=== PATIENT | male | born 1965 | race Caucasian/White ===

== ENCOUNTER 2021-04-08 11:27 | Inpatient (IN) | payer OTHER ==
[2021-04-08] MEDS ORDERED: ASPIRIN 81 MG PO STA (12:26)
[2021-04-08] MEDS ORDERED: DOPamine DRIP 800 MG in DEXTROSE/WATER 1 250ML.BAG IV ONE (12:30)
[2021-04-08] MEDS ORDERED: MAGNESIUM SULFATE-D5W PMX 1 GM in DEXTROSE/WATER 1 100ML.BAG IVPB ONE (12:35)
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
[2021-04-08 12:52] LABS: Basophils # (A) 0.1 k/uL (0-0.2); Basophils % (A) 1 %; Eosinophils # (A) 0.1 k/uL (0-0.7); Eosinophils % (A) 1 %; HCT 43.8 % (39.0-53.0); HGB 13.8 gm/dL (13.0-17.5); Hypochromasia Moderate; Lymphocytes # (A) 1.8 k/uL (1.0-4.8); Lymphocytes % (A) 20 %; MCH 28.3 pg (25.0-35.0); MCHC 31.4 g/dL (31.0-37.0); MCV 90.2 fL (80.0-100.0); Mean Platelet Volume 8.6; Monocytes # (A) 0.6 k/uL (0-1.0); Monocytes % (A) 7 %; Neutrophils # (A) 6.5 k/uL (1.3-7.7); Neutrophils % (A) 70 %; Platelet Count 215 k/uL (150-450); RBC 4.86 m/uL (4.30-5.90); RDW 15.2 % (11.5-15.5); WBC 9.3 k/uL (3.8-10.6)
[2021-04-08 13:01] LABS: Albumin 3.9 g/dL (3.5-5.0); Calcium 9.1 mg/dL (8.4-10.2); Magnesium 1.7 mg/dL (1.6-2.3); Potassium 5.2 mmol/L (3.5-5.1); Total Bilirubin 1.4 mg/dL (0.2-1.3); Total Protein 7.3 g/dL (6.3-8.2)
[2021-04-08] MEDS ORDERED: OLANZapine 10 MG VIAL IM STA (13:04)
[2021-04-08 13:06] LABS: INR 1.1 (<1.2); Partial Thromboplastin Time 25.1 sec (22.0-30.0); Prothrombin Time 11.7 sec (9.0-12.0)
[2021-04-08] MEDS ORDERED: SODIUM CHLORIDE 0.9% 1,000 ML IV STA (13:08)
[2021-04-08] MEDS ORDERED: NALOXONE 0.4 MG/ML 1 ML VIAL IV PRN (13:27)
--- NOTE | 2021-04-08 13:29 | XR ---
EXAMINATION TYPE: XR chest 1V portable DATE OF EXAM: 04/08/2021 COMPARISON: NONE HISTORY: Chest pain. Bradycardia and hypertension. TECHNIQUE: Single AP portable frontal upright view of the chest is obtained. FINDINGS: Overlying sternal wires and mediastinal clips are present. There is mild cardiomegaly with single lead defibrillator may be subcutaneous or epicardial in position. Mild reticular interstitial prominence favors chronic parenchymal fibrosis. No suspicious focal consolidation, pleural effusion, or pneumothorax. Fusion plate in the cervical spine is partially imaged. IMPRESSION: Mild cardiomegaly and chronic changes without acute pulmonary process.
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
[2021-04-08] MEDS ORDERED: fentaNYL (PF) 50 MCG/ML 2 ML AMP ONE (13:52)
[2021-04-08] MEDS ORDERED: LIDOCAINE 1% INJ 10MG/ML (20 ML MDV) ONE (13:52)
[2021-04-08] MEDS ORDERED: SODIUM CHLORIDE 0.9% 1,000 ML IV ONE (14:00)
[2021-04-08] MEDS ORDERED: MIDAZOLAM 2 MG/2 ML VIAL IV ONE (14:04)
[2021-04-08] MEDS ORDERED: LIDOCAINE 1% INJ 10MG/ML (20 ML MDV) SQ ONE (14:09)
[2021-04-08 15:20] LABS: Glucose,Whole Blood 301 mg/dL (75-99)
[2021-04-08] MEDS: SODIUM CHLORIDE 0.9% 1,000 ML IV SCH (16:00)
[2021-04-08] MEDS ORDERED: HEPARIN SODIUM 1,000 UN/ML (10ML VL) IV PRN (16:06)
[2021-04-08] MEDS: HEPARIN SOD,PORK IN 0.45% NACL 25,000 UNIT in 0.45% NACL 1 250ML.BAG IV SCH (16:47)
[2021-04-08 16:59] LABS: Glucose,Whole Blood 318 mg/dL (75-99)
--- NOTE | 2021-04-08 17:41 | CONS ---
CONSULTATION This is a 55-year-old gentleman who presented to hospital having had episodes of dizziness and near syncope. He was found to be in complete heart block with AV dissociation with a stable rhythm with a heart rate of 40 beats per minute. There were also ischemic T wave changes on the EKG. His potassium is elevated at 5.2. He is in new onset renal failure and the troponin is also elevated suggestive of recent myocardial infarction. The patient has a subcutaneous ICD and does not have a pacing function. I attempted a temporary transvenous pacemaker on him, but could not obtain venous access and given the fact that patient is stable hemodynamically blood pressure de jesus and heart rate de jesus on a small dose of dopamine, I decided not to do a temporary pacemaker at this time. I am going to have Nephrology evaluate the patient, hydrate him and see how his renal functions improve. With that, we would consider invasive angiography and a Bi-V AICD. The patient might actually undergo the Bi-V AICD before the cardiac catheterization if the sinus rhythm does not resume. If he develops worsening bradycardia, more symptomatic bradycardia, we will have to go back and attempt a temporary pacemaker another time. I am not performing cardiac catheterization on him at this time given the new onset renal failure and my concern for contrast induced nephropathy and the fear for dialysis. He is not having any chest pain. He is not in overt heart failure and he is hemodynamically stable. TINYL / IJN: [id number] /
[2021-04-08] MEDS: INSULIN ASPART (NovoLOG) 100 UNIT/ML VIAL SQ SCH ×2 (17:54)
[2021-04-08] MEDS ORDERED: FUROSEMIDE 10 MG/ML 4 ML VIAL IV STA (19:47)
[2021-04-08 20:04] LABS: INR 1.1 (<1.2); Partial Thromboplastin Time 29.1 sec (22.0-30.0); Prothrombin Time 11.7 sec (9.0-12.0)
[2021-04-08] MEDS: GABAPENTIN 300 MG CAP PO SCH (20:28)
[2021-04-08] MEDS: ATORVASTATIN 80 MG TAB PO SCH (20:29)
[2021-04-08 20:46] LABS: Glucose,Whole Blood 300 mg/dL (75-99)
[2021-04-08] MEDS ORDERED: CLOPIDOGREL 75 MG TAB PO SCH (21:00)
[2021-04-08] MEDS ORDERED: INSULIN DETEMIR (LEVEMIR) 100 UNIT/ML SYR SQ SCH (21:00)
[2021-04-09] MEDS: SODIUM CHLORIDE 0.9% 1,000 ML IV SCH ×6 (03:25→20:50)
[2021-04-09 04:14] LABS: INR 1.1 (<1.2); Partial Thromboplastin Time 40.2 sec (22.0-30.0); Prothrombin Time 11.8 sec (9.0-12.0)
[2021-04-09 05:42] LABS: Glucose,Whole Blood 203 mg/dL (75-99)
[2021-04-09] MEDS: INSULIN ASPART (NovoLOG) 100 UNIT/ML VIAL SQ SCH ×6 (05:44→20:26)
[2021-04-09 06:29] LABS: Basophils % (A) 0 %; Eosinophils # (A) 0.1 k/uL (0-0.7); Eosinophils % (A) 1 %; HCT 40.1 % (39.0-53.0); HGB 12.5 gm/dL (13.0-17.5); Hypochromasia Moderate; Lymphocytes # (A) 1.6 k/uL (1.0-4.8); Lymphocytes % (A) 16 %; MCH 28.1 pg (25.0-35.0); MCHC 31.1 g/dL (31.0-37.0); MCV 90.2 fL (80.0-100.0); Mean Platelet Volume 8.6; Monocytes # (A) 0.6 k/uL (0-1.0); Monocytes % (A) 6 %; Neutrophils # (A) 8.1 k/uL (1.3-7.7); Neutrophils % (A) 77 %; Platelet Count 162 k/uL (150-450); RBC 4.44 m/uL (4.30-5.90); WBC 10.5 k/uL (3.8-10.6)
[2021-04-09 07:19] LABS: Calcium 8.4 mg/dL (8.4-10.2); Magnesium 1.9 mg/dL (1.6-2.3); Potassium 4.5 mmol/L (3.5-5.1); Total Bilirubin 1.6 mg/dL (0.2-1.3); Total Protein 6.2 g/dL (6.3-8.2)
[2021-04-09] MEDS: ASPIRIN 81 MG PO SCH (08:06)
[2021-04-09] MEDS: GABAPENTIN 300 MG CAP PO SCH ×3 (08:06→20:31)
[2021-04-09] MEDS: oxyCODONE-APAP 10-325MG 1 EACH TAB PO PRN ×2 (08:09→22:35)
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
--- NOTE | 2021-04-09 10:18 | P.PN ---
Subjective Progress Note Date: 04/09/21 Patient is a 55-year-old male with a known history of hypertension, coronary artery disease status post coronary artery bypass grafts for 4 vessels in 2016, ischemic cardiomyopathy status post subcutaneous AICD no pacemaker, hyperlipidemia, severe peripheral artery disease, status post left below the knee amputation, history of CVA with left-sided weakness that has no residual, degenerative disc disease of the cervical spine status post ACDF of C5 and C7, diabetes mellitus type 2 and new onset renal failure. Patient had a near syncopal episode at home. Patient was admitted with a third degree heart block. Patient sees Dr. Jalloh in the office. Patient remains in a a complete heart block with A-V disassociation with a stable rhythm with a heart rate in the 40s. Spoke with Dr. Jalloh, patient will go for an AICD today followed by a possible cardiac catheterization tomorrow based on patient's creatinine. Will check electrolytes in the morning. Keep patient nothing by mouth at midnight. Patient examined resting in bed this morning. Patient denies chest pain, palpitations, dyspnea, dizziness, syncope, or edema. Blood pressure today is 116/53, heart rate 48, respirations 17, oxygen 96% on 4 L nasal cannula, afebrile. Patient is on IV heparin. Diagnostics: Telemetry monitoring shows patient in the third degree heart block Labs reviewed: Hemoglobin 12.5, sodium 130, potassium 4.5, BUN 32, creatinine 1.51, hemoglobin 10.2, troponins 1.78, 2.11, 3.30 Echo pending Chest x-ray showed mild cardiomegaly and chronic changes without acute pulmonary process Objective - Vital Signs Vital signs: Vital Signs Temp 98.4 F 04/09/21 04:00 Pulse 48 L 04/09/21 08:00 Resp 17 04/09/21 08:00 BP 116/53 04/09/21 08:00 Pulse Ox 96 04/09/21 08:00 Intake & Output 04/08/21 04/09/21 04/09/21 18:59 06:59 18:59 Intake Total 352.273 9170.146 200 Output Total 1000 0 Balance 353.373 276.146 200 Weight 83.915 kg 82 kg Intake: IV 325 900 200 Sodium Chloride 0.9% 1, 225 900 200 000 ml @ 50 mls/hr IV . Q20H [facility] [place] Rx#:[id number] Intake, IV Titration 28.373 136.146 Amount DOPamine DRIP 800 mg In 28.373 Dextrose/Water 1 250ml. bag @ 5 MCG/KG/MIN 7.867 mls/hr IV .Q24H [facility] Rx#: [id number] Heparin Sod,Pork in 0.45% 136.146 NaCl 25,000 unit In 0.45 % NaCl 1 250ml.bag @ 11. 917 UNITS/KG/HR 10 mls/hr IV .Q24H [facility] Rx#: [id number] Oral 240 Output: Urine 1000 0 Other: Voiding Method Urinal - Exam PHYSICAL EXAM: VITAL SIGNS: Reviewed. GENERAL: Well-developed in no acute distress. HEENT: Head is normocephalic. Pupils are equal, round. Sclerae anicteric. Mucous membranes of the mouth are moist. NECK: Supple. No JVD or thyromegaly RESPIRATORY: Respirations even and unlabored. Lungs diminished to auscultation bilaterally. Patient on 4 L nasal cannula CARDIO: Iregular rate and rhythm. Complete heart block with A-V disassociation, No murmur or gallops. EXTREMITIES: Normal range of motion. No clubbing or cyanosis. Peripheral pulses intact. Negative for bilateral lower extremity edema NEURO: Orientated to person, time, mood is appropriate - Labs CBC & Chem 7: 04/09/21 05:32 04/09/21 05:32 Labs: Abnormal Lab Results - Last 24 Hours (Table) 04/08/21 04/08/21 04/08/21 Range/Units 12:38 12:38 15:18 Hgb (13.0-17.5) gm/dL Neutrophils # (1.3-7.7) k/uL APTT (22.0-30.0) sec Sodium 128 L (137-145) mmol/L Potassium 5.2 H (3.5-5.1) mmol/L Chloride 94 L (98-107) mmol/L BUN 33 H (9-20) mg/dL Creatinine 2.23 H (0.66-1.25) mg/dL Glucose 299 H (74-99) mg/dL POC Glucose (mg/dL) 301 H (75-99) mg/dL Hemoglobin A1c (0.0-6.0) % Total Bilirubin 1.4 H (0.2-1.3) mg/dL Alkaline Phosphatase 129 H (38-126) U/L Troponin I 1.780 H* (0.000-0.034) ng/mL Total Protein (6.3-8.2) g/dL Albumin (3.5-5.0) g/dL 04/08/21 04/08/21 04/08/21 Range/Units 16:53 19:28 20:43 Hgb (13.0-17.5) gm/dL Neutrophils # (1.3-7.7) k/uL APTT (22.0-30.0) sec Sodium (137-145) mmol/L Potassium (3.5-5.1) mmol/L Chloride (98-107) mmol/L BUN (9-20) mg/dL Creatinine (0.66-1.25) mg/dL Glucose (74-99) mg/dL POC Glucose (mg/dL) 318 H 300 H (75-99) mg/dL Hemoglobin A1c (0.0-6.0) % Total Bilirubin (0.2-1.3) mg/dL Alkaline Phosphatase (38-126) U/L Troponin I 2.110 H* (0.000-0.034) ng/mL Total Protein (6.3-8.2) g/dL Albumin (3.5-5.0) g/dL 04/09/21 04/09/21 04/09/21 Range/Units 03:17 03:17 05:32 Hgb 12.5 L (13.0-17.5) gm/dL Neutrophils # 8.1 H (1.3-7.7) k/uL APTT 40.2 H (22.0-30.0) sec Sodium (137-145) mmol/L Potassium (3.5-5.1) mmol/L Chloride (98-107) mmol/L BUN (9-20) mg/dL Creatinine (0.66-1.25) mg/dL Glucose (74-99) mg/dL POC Glucose (mg/dL) (75-99) mg/dL Hemoglobin A1c (0.0-6.0) % Total Bilirubin (0.2-1.3) mg/dL Alkaline Phosphatase (38-126) U/L Troponin I 3.300 H* (0.000-0.034) ng/mL Total Protein (6.3-8.2) g/dL Albumin (3.5-5.0) g/dL 04/09/21 04/09/21 04/09/21 Range/Units 05:32 05:32 05:41 Hgb (13.0-17.5) gm/dL Neutrophils # (1.3-7.7) k/uL APTT (22.0-30.0) sec Sodium 130 L (137-145) mmol/L Potassium (3.5-5.1) mmol/L Chloride (98-107) mmol/L BUN 32 H (9-20) mg/dL Creatinine 1.51 H (0.66-1.25) mg/dL Glucose 236 H (74-99) mg/dL POC Glucose (mg/dL) 203 H (75-99) mg/dL Hemoglobin A1c 10.2 H (0.0-6.0) % Total Bilirubin 1.6 H (0.2-1.3) mg/dL Alkaline Phosphatase (38-126) U/L Troponin I (0.000-0.034) ng/mL Total Protein 6.2 L (6.3-8.2) g/dL Albumin 3.0 L (3.5-5.0) g/dL Assessment and Plan Assessment: Complete heart block Non-ST elevated myocardial infarction Acute kidney injury Ischemic cardiomyopathy Hypertension Hyperlipidemia Plan: he will have an AICD placed today. Possible heart catheterization tomorrow based on patient's creatinine levels. Keep patient nothing by mouth at midnight. Check electrolytes and kidney function tomorrow Continue with current cardiac medications Review pending echocardiogram Continue telemetry monitoring Further recommendations based on clinical course The above impression and plan of care have been discussed and directed by the signing physician. Mary Kay, nurse practitioner, acting as scribe for signing physician.
--- NOTE | 2021-04-09 10:54 | ECHOF ---
Referral Reason:heart block MEASUREMENTS -------- HEIGHT: 172.7 cm WEIGHT: 83.9 kg BP: 113/58 IVSd: 1.4 cm (0.6 - 1.1) LVIDd: 4.7 cm (3.9 - 5.3) LVPWd: 1.5 cm (0.6 - 1.1) IVSs: 1.6 cm LVIDs: 3.9 cm LVPWs: 1.5 cm FINDINGS -------- Resting bradycardia (HR<60bpm). This was a technically difficult study with suboptimal apical views. The left ventricular size is normal. There is mild concentric left ventricular hypertrophy. Overa ll left ventricular systolic function is moderate-severely impaired with, an EF between 30 - 35 %. Septal wall motion is delayed and consistent with prior cardiac surgery. Global hypokinesis 3.0mg of Lumason was utilized for enhancement of images There is no pericardial effusion. CONCLUSIONS -------- 1. The left ventricular size is normal. 2. There is mild concentric left ventricular hypertrophy. 3. Overall left ventricular systolic function is moderate-severely impaired with, an EF between 30 - 35 %. 4. Global hypokinesis CORRECTIONS UNIT SUPERVISOR: Vernell Zhang RDCS
[2021-04-09] MEDS: FUROSEMIDE 10 MG/ML 4 ML VIAL IV SCH (10:55)
[2021-04-09 11:53] LABS: Glucose,Whole Blood 60 mg/dL (75-99)
[2021-04-09 11:53] LABS: Glucose,Whole Blood 62 mg/dL (75-99)
[2021-04-09] MEDS ORDERED: DEXTROSE 50% SYRINGE 50 ML IVP ONE (11:55)
[2021-04-09] MEDS ORDERED: DEXTROSE 50% SYRINGE 50 ML IVP STA (11:56)
[2021-04-09] MEDS ORDERED: ceFAZolin 1 GM in SODIUM CHLORIDE 0.9% 250 ML IRRIGATION PRN (12:00)
[2021-04-09 12:24] LABS: Glucose,Whole Blood 104 mg/dL (75-99)
[2021-04-09 13:13] LABS: Appearance,Urine Clear (Clear); Bilirubin,Urine Negative (Negative); Blood,Urine Small (Negative); Color,Urine Yellow; Glucose,Urine (UA) Negative (Negative); Ketones,Urine Negative (Negative); Leukocyte Esterase,Urine Trace (Negative); Nitrite,Urine Negative (Negative); PH, Urine 5.5 (5.0-8.0); Protein,Urine 2+ (Negative); RBC,Urine 2 /hpf (0-5); Squamous Epithelial Cell,Urine 1 /hpf (0-4); Urobilinogen,Urine <2.0 mg/dL (<2.0); WBC,Urine 4 /hpf (0-5)
[2021-04-09 13:59] LABS: Glucose,Whole Blood 72 mg/dL (75-99)
[2021-04-09 14:35] VITALS: BMI 27.4
[2021-04-09] MEDS ORDERED: fentaNYL (PF) 50 MCG/ML 2 ML AMP ONE (16:20)
[2021-04-09] MEDS ORDERED: MIDAZOLAM 2 MG/2 ML VIAL ONE (16:20)
[2021-04-09] MEDS ORDERED: IV FLUID CONTINUATION 1,000 ML IV ONE (16:25)
--- NOTE | 2021-04-09 16:38 | P.EPCON ---
Electrophysiology Consult - EP Consult Electrophysiology Consult: This is Dr. Sorenson dictating a consult on this patient The patient was interviewed and examined IMPRESSION / ASSESSMENT: Third degree heart block with underlying right bundle branch block Ischemic cardio myopathy, left ventricular ejection fraction 30 of 35% Status post subcutaneous ICD implant Status post coronary artery bypass grafting Hypertension, type 2 diabetes, peripheral vascular disease Prerenal nature of acute renal failure I anticipate that Will improve with pacing PLAN: Patient needs permanent pacing. However the standard pacemaker. Pace his ventricle 100% With underlying ischemic cardio myopathy that result in worsening heart failure symptoms Would recommend implantation of a biventricular pacemaker in combination with a subcutaneous ICD This was discussed with patient He agrees with the plan We will proceed tomorrow Avoid transvenous temporary pacing and discussed with Dr. Kay KERN Patient presenting with dizzy spells and near syncope over the weekend He felt everything was slowing down going black. He had 3 near syncopal spells while sitting no injury Twelve-lead EKG in his primary care physician's office showed complete heart block with heart rates in the 40s On IV dopamine his heart rate still remain 40 beats a minute He has known ischemic coronary myopathy with left ventricular ejection fraction of 25% enzyme carvedilol for this This medications discontinued and he remains slow History of hypertension, coronary artery disease status post coronary artery bypass grafting, PCI to the LAD and RCA Ischemic cardio myopathy Status post subcutaneous ICD implant about 4 years back in [place] Type 2 diabetes, status post amputation, peripheral vascular disease ROS: No fever chills or rigors, no cough, phlegm or expectoration, no nausea, vomiting or diarrhea, no hematuria, dysuria, no musculoskeletal complaints, no strokes or seizures, no skin lesions. EXAMINATION: 1 examination he is resting comfortably in the ICU bed heart rates in the 40s afebrile Blood pressure 146/62 mmHg Breath sounds are reduced bilaterally but there are no rhonchi no crackles Heart sounds S1 and S2 are soft no murmurs bradycardia noted No lower extremity edema No JVD REVIEW OF LABS, ECG & MEDICAL DATA 12.5 hemoglobin, platelet count 106 2000 Sodium 130, potassium 4.5, BUN 32 and creatinine 2.23 Troponin of 2.1
[2021-04-09] MEDS ORDERED: IOPAMIDOL-370 50ML BTL INJ ONE ×2 (16:52→18:29)
[2021-04-09] MEDS ORDERED: LIDOCAINE 1% INJ 10MG/ML (20 ML MDV) ONE ×2 (16:56→17:24)
[2021-04-09] MEDS ORDERED: LIDOCAINE 1% INJ 10MG/ML (20 ML MDV) SQ ONE ×2 (17:15→17:27)
[2021-04-09] MEDS ORDERED: LACTATED RINGERS 1,000 ML IV ONE (18:06)
[2021-04-09] MEDS ORDERED: ACETAMINOPHEN IV (For NPO) 1,000 MG in EMPTY BAG 1 BAG IVPB ONE (19:05)
[2021-04-09] MEDS ORDERED: ACETAMINOPHEN TAB 325 MG TAB PO PRN (19:05)
--- NOTE | 2021-04-09 19:21 | P.EPPROC ---
- EP Procedure Note Electrophysiology Procedure Note: Diagnosis Third degree heart block with severe bradycardia Bradycardia, standard pacemaker will result in RV pacing = 100% Severe congestive heart failure Severe ischemic cardio myopathy Procedure LV/ biventricular pacemaker implantation Details Patient was brought to the EP lab in a fasting state. Written informed consent was obtained prior to the procedure. Conscious sedation provided by anesthesia team IV antibiotics administered. Local anesthesia administered. A 4 cm incision made in the pectoral area. Subfascial pocket made. Venous access obtained Venous sheaths placed. Leads placed in the right heart Atrial lead position the right atrial appendage. Metronic 52 segmented lead screwed in right atrial appendage. He waves 2.5 mV pacing impedance 513 ohms pacing threshold 0.5 V at 0.4 ms 10 V test negative RV lead position in the RV septum. ICD lead placed because he had a very dilated right ventricle with high pressures, needing a heavier, longer lead Pacing impedance 570 ohms, pacing threshold 0.5 V at 0.4 ms LV lead positioned in the LV vein, lateral vein Screw-in LV lead 88 cm. Excellent thresholds 0.5 V at 0.4 ms between poles 1 and 2 and post 2 and 3 as well as poles 3 and 4 Diaphragmatic stimulation when pacing poles 4-3 DF 1 pin capped and secured to the muscle Biventricular pacemaker device connected to the leads and placed in the subfascial pocket Metronic Solara quad MRI Patient tolerance the procedure well without acute complications Plan Resume beta blockers Initiate ENTRESTO once renal function is at baseline
[2021-04-09 19:58] LABS: Glucose,Whole Blood 59 mg/dL (75-99)
[2021-04-09 20:15] LABS: Glucose,Whole Blood 84 mg/dL (75-99)
[2021-04-09] MEDS: HEPARIN SOD,PORK IN 0.45% NACL 25,000 UNIT in 0.45% NACL 1 250ML.BAG IV SCH (20:26)
[2021-04-09] MEDS: ATORVASTATIN 80 MG TAB PO SCH (20:31)
[2021-04-09] MEDS ORDERED: INSULIN DETEMIR (LEVEMIR) 100 UNIT/ML SYR SQ SCH (21:00)
--- NOTE | 2021-04-09 21:32 | XR ---
EXAMINATION TYPE: XR chest 1V portable DATE OF EXAM: 04/09/2021 COMPARISON: NONE HISTORY: Chest pain TECHNIQUE: Single view FINDINGS: Heart is normal. Lungs are clear of consolidation. There is left axillary pacemaker. There are sternal wires. The costophrenic angles are clear. IMPRESSION: No active cardiopulmonary disease. No adverse change.
[2021-04-10] LABS: Glucose,Whole Blood 203 mg/dL (75-99)
[2021-04-10 06:10] LABS: Glucose,Whole Blood 207 mg/dL (75-99)
[2021-04-10] MEDS: INSULIN ASPART (NovoLOG) 100 UNIT/ML VIAL SQ SCH ×4 (06:27→12:03)
[2021-04-10] MEDS ORDERED: PANTOPRAZOLE 40 MG TABLET PO SCH (07:30)
[2021-04-10] MEDS ORDERED: carvediloL 3.125 MG TAB PO SCH (07:30)
[2021-04-10] MEDS: FUROSEMIDE 10 MG/ML 4 ML VIAL IV SCH (08:07)
[2021-04-10] MEDS: ASPIRIN 81 MG PO SCH (08:08)
[2021-04-10] MEDS: oxyCODONE-APAP 10-325MG 1 EACH TAB PO PRN (08:08)
[2021-04-10] MEDS: GABAPENTIN 300 MG CAP PO SCH (08:08)
[2021-04-10 08:13] VITALS: RESP 16; TEMP 98.2
--- NOTE | 2021-04-10 08:30 | P.DS ---
Providers Date of admission: 04/08/21 13:29 Expected date of discharge: 04/10/21 Attending physician: Fredy Sheehan Consults: 04/08/21 12:33 Consult Physician Stat Consulting Provider: Rosendo Cid Consult Reason/Comments: complete heart block Do you want consulting provider notified?: Already Contacted 04/08/21 14:51 Consult Physician Routine Consulting Provider: Vishnu Matos Consult Reason/Comments: New Onset Kidney Disease Do you want consulting provider notified?: Yes Primary care physician: Fredy Sheehan Hospital Course: This is a 55-year-old male one of my patient and Dr. Jalloh with a previous medical history significant for hypertension and hypertensive cardiovascular disease, diabetes mellitus type 2, for the last 3 years with diabetic polyneuropathy, coronary artery disease status post coronary artery bypass graft for 4 vessels back in 2016 with MONTALVO to LAD, jump SVG graft to the diagonal branch and obtuse marginal branch and SVG graft to the RCA with ischemic cardiomyopathy status post subcutaneous AICDno pacemaker, hyperlipidemia, severe PAD, status post left below-knee amputation, history of CVA with left- sided weakness that has resolved completely, degenerative disc disease of the cervical spine status post ACDF of C5 and C7. Patient presented to the office complains of syncopal episodes, feeling tired. He had stopped taking his Coreg and Plavix at home. Patient had a total of 3 syncopal episodes. In the office his EKG showed complete heart block with heart rate in the 40s and patient was sent over directly to the emergency center. Patient was subsequently admitted into the intensive care unit status post transvenous pacemaker placement with Dr. Nay Cid and scheduled for biventricular AICD implantation today. Patient states he feels tired. He denies having any dizziness or lightheadedness, no chest pain or pressure. Blood sugars are on the high side so Levemir will be increased to 27 units. 04/10: Patient is seen today on the cardiac stepdown unit. He is complaining of significant soreness to his left shoulder and arm sling is in place. Patient is requesting sensors for his Freestyle Chapito 2 but due to his insurance, no coverage is available. Patient is to have device interrogated and then cleared by cardiology for discharge. Cardiology is planning for heart catheterization outpatient. Patient will be discharged home today in stable condition. DISCHARGE DIAGNOSES 1. Complete heart block, status post transvenous pacemaker placement with Dr. Nay Cid and S/P biventricular AICD implantation with Dr. Sorenson. 2. Acute kidney injury. 3. Ischemic cardiomyopathy. 4. Diabetes mellitus type 2 insulin requiring, uncontrolled with hyperglycemia. 5. Severe PAD status post left below-knee amputation with current disease in the right lower extremity has been under the care of vascular surgery. 6. Diabetic polyneuropathy. 7. Chronic pain syndrome secondary to degenerative disc disease of the cervical spine and lumbar spine. 8. Insomnia. DISCHARGE PLAN Home. Greater than 35 minutes was utilized and coordinating patient's discharge. Impression and plan of care have been directed as dictated by the signing physician. Jen Jolley nurse practitioner acting as scribe for signing physician. Patient Condition at Discharge: Good Plan - Discharge Summary New Discharge Prescriptions: New Aspirin 81 mg PO DAILY tab carvediloL [Coreg] 3.125 mg PO BID-W/MEALS #60 tab Continue metFORMIN HCL [Glucophage] 1,000 mg PO W/SUPPER Clopidogrel [Plavix] 75 mg PO HS oxyCODONE HCL/ACETAMINOPHEN [Percocet 10-325 mg] 1 tab PO Q6HR PRN PRN Reason: Pain Insulin Glargine,Hum.rec.anlog [Lantus Solostar Pen] 24 unit SQ HS Gabapentin [Neurontin] 600 mg PO TID #0 Insulin Lispro [humaLOG Kwikpen] 4 unit SQ AC-TID Atorvastatin Calcium [Lipitor] 80 mg PO HS #30 tablet Furosemide [Lasix] 80 mg PO HS Nitroglycerin Sl Tabs [Nitrostat] 0.4 mg PO Q5M PRN PRN Reason: Chest Pain Insulin Lispro [humaLOG Kwikpen] See Protocol SQ AC-TID Discontinued carvediloL [Coreg] 6.25 mg PO HS Discharge Medication List Clopidogrel [Plavix] 75 mg PO HS 05/31/20 [History] metFORMIN HCL [Glucophage] 1,000 mg PO W/SUPPER 05/31/20 [History] Insulin Glargine,Hum.rec.anlog [Lantus Solostar Pen] 24 unit SQ HS 12/08/20 [History] oxyCODONE HCL/ACETAMINOPHEN [Percocet 10-325 mg] 1 tab PO Q6HR PRN 12/08/20 [History] Atorvastatin Calcium [Lipitor] 80 mg PO HS #30 tablet 12/12/20 [Rx] Gabapentin [Neurontin] 600 mg PO TID #0 12/12/20 [Rx] Furosemide [Lasix] 80 mg PO HS 01/07/21 [History] Nitroglycerin Sl Tabs [Nitrostat] 0.4 mg PO Q5M PRN 01/07/21 [History] Insulin Lispro [humaLOG Kwikpen] 4 unit SQ AC-TID 04/08/21 [History] Insulin Lispro [humaLOG Kwikpen] See Protocol SQ AC-TID 04/08/21 [History] Aspirin 81 mg PO DAILY tab 04/10/21 [Rx] carvediloL [Coreg] 3.125 mg PO BID-W/MEALS #60 tab 04/10/21 [Rx] Follow up Appointment(s)/Referral(s): Fredy Sheehan MD [Primary Care Provider] - 1 Week Rosendo Cid MD [STAFF PHYSICIAN] - 1 Week Patient Instructions/Handouts: Pacemaker (DC) Activity/Diet/Wound Care/Special Instructions: Order for sensors faxed to [facility] - phone number [phone] Discharge Disposition: HOME SELF-CARE
[2021-04-10 08:42] LABS: Albumin 3.1 g/dL (3.5-5.0); Calcium 8.3 mg/dL (8.4-10.2); Magnesium 1.8 mg/dL (1.6-2.3); Potassium 4.4 mmol/L (3.5-5.1); Total Bilirubin 1.3 mg/dL (0.2-1.3); Total Protein 6.4 g/dL (6.3-8.2)
[2021-04-10 11:45] LABS: Glucose,Whole Blood 272 mg/dL (75-99)
--- NOTE | 2021-04-10 11:59 | P.PN ---
Subjective Patient is seen in follow for acute kidney injury. Renal function continues to improve. Had AICD placed yesterday. Denies chest pain or shortness of breath. Good urine output. No vomiting or diarrhea. Hemodynamically stable. Vital signs are stable. General: The patient appeared well nourished and normally developed. HEENT: Head exam is unremarkable. LUNGS: Breath sounds decreased. HEART: Rate and Rhythm are regular. ABDOMEN: Soft, no distention. EXTREMITITES: No edema. Amputation noted. Objective - Vital Signs Vital signs: Vital Signs Temp 98.2 F 04/10/21 08:00 Pulse 83 04/10/21 08:00 Resp 16 04/10/21 08:00 BP 103/69 04/10/21 08:00 Pulse Ox 96 04/10/21 08:00 Intake & Output 04/09/21 04/10/21 04/10/21 18:59 06:59 18:59 Intake Total 1363.854 100 360 Output Total 450 Balance 913.854 100 360 Weight 82 kg 75 kg Intake: IV 1250 50 Sodium Chloride 0.9% 1, 550 50 000 ml @ 50 mls/hr IV . Q20H [facility] Rx#:[id number] Intake, IV Titration 113.854 50 Amount Heparin Sod,Pork in 0.45% 113.854 NaCl 25,000 unit In 0.45 % NaCl 1 250ml.bag @ 11. 917 UNITS/KG/HR 10 mls/hr IV .Q24H [facility] Rx#: [id number] ceFAZolin 2 gm In Sodium 50 Chloride 0.9% 50 ml @ 100 mls/hr IVPB Q6H [facility] Rx#: [id number] Oral 360 Output: Urine 450 Other: Voiding Method Urinal Toilet Toilet Urinal Urinal # Voids 1 # Bowel Movements 1 - Labs CBC & Chem 7: 04/09/21 05:32 04/10/21 07:25 Labs: Abnormal Lab Results - Last 24 Hours (Table) 04/09/21 04/09/21 04/09/21 Range/Units 12:22 13:00 13:57 Sodium (137-145) mmol/L BUN (9-20) mg/dL Glucose (74-99) mg/dL POC Glucose (mg/dL) 104 H 72 L (75-99) mg/dL Calcium (8.4-10.2) mg/dL Albumin (3.5-5.0) g/dL Urine Protein 2+ H (Negative) Urine Blood Small H (Negative) Ur Leukocyte Esterase Trace H (Negative) 04/09/21 04/09/21 04/10/21 Range/Units 19:56 23:58 06:08 Sodium (137-145) mmol/L BUN (9-20) mg/dL Glucose (74-99) mg/dL POC Glucose (mg/dL) 59 L 203 H 207 H (75-99) mg/dL Calcium (8.4-10.2) mg/dL Albumin (3.5-5.0) g/dL Urine Protein (Negative) Urine Blood (Negative) Ur Leukocyte Esterase (Negative) 04/10/21 04/10/21 Range/Units 07:25 11:30 Sodium 133 L (137-145) mmol/L BUN 31 H (9-20) mg/dL Glucose 180 H (74-99) mg/dL POC Glucose (mg/dL) 272 H (75-99) mg/dL Calcium 8.3 L (8.4-10.2) mg/dL Albumin 3.1 L (3.5-5.0) g/dL Urine Protein (Negative) Urine Blood (Negative) Ur Leukocyte Esterase (Negative) Assessment and Plan Plan: Assessment: 1. Acute kidney injury mostly prerenal secondary to hemodynamic instability. Creatinine was 2.23 on admission and is 1.21 today. Baseline creatinine near 1. 2. Third-degree heart block s/p biventricular pacemaker placement. 3. Diabetes mellitus. 4. Status post left BKA. 5. Hyponatremia secondary to hyperglycemia and acute kidney injury. Improved. 6. Proteinuria. This is most likely due to diabetic kidney disease. Further workup outpatient. 7. Acute on chronic systolic CHF with ejection fraction of 30-35%. Plan: Avoid nephrotoxins. Continue to monitor renal function and urine output. Blood sugar control. Maintain Lasix. Transition to oral on discharge. Follow-up outpatient in 1 week. I advised patient to maintain low salt diet as well as 40 of fluid restriction per day. He was also advised to monitor his weight closely at home and to call if gains more than 3-4 pounds in one week duration.
[2021-04-10 12:07] VITALS: BP 122/69; PULSE 81
--- NOTE | 2021-04-10 13:16 | P.PN ---
Subjective This is a pleasant 55-year-old male with a history of hypertension, coronary artery disease status post CABG in 2016 with 4 bypass and PCI to RCA in 11/2020 and PCI LAD 12/2020, ischemic cardiomyopathy status post subcutaneous AICD No pacer built in, hyperlipidemia, PVD with recent peripheral stenting, diabetes with polyneuropathy, status post amputation. Patient follows with Dr. Jalloh. We have been consulted for complete heart block. Patient presents emergency department with complaints of syncopal episodes. Patient was found to be in third-degree heart block with underlying right bundle-branch block. He was started on dopamine and patient remains on repeat a minute. He was also found to be in acute kidney injury. Echocardiogram revealed EF of 3035 percent, global hypokinesis and patients troponins elevated to 3.3. Patient underwent biventricular pacemaker implantation by Dr. Sorenson on 04/09/2021. Patient seen and examined at bedside, no acute distress. Vital signs are stable. He is V paced on the monitor HR 80s-90s. Patient is on aspirin 81mg daily, atorvastatin 80mg nightly, carvedilol 3.125mg BID, was given IV Lasix 40mg. Patient is alert and oriented x 3. No complaints of chest pain shortness of breath. He does have some soreness to his left arm. Device was checked by breath with no acute findings, device is functioning normally. GENERAL: Well-appearing, well-nourished and in no acute distress. NECK: Supple without JVD or thyromegaly. LUNGS: Breath sounds clear to auscultation bilaterally. Respiration equal and unlabored. No wheezes, rales or rhonchi. HEART: Regular rate and rhythm without murmurs, rubs or gallops. S1 and S2 heard. Left chest pacemaker site, clean dry intact, small dry blood on dressing EXTREMITIES: Normal range of motion, no edema. No clubbing or cyanosis. Peripheral pulses intact. ASSESSMENT Third degree heart block Status post biventricular pacemaker implantation on 04/09/21 Coronary artery disease status post CABG in 2016 with 4 bypass and PCI to RCA in 11/2020 and PCI LAD 12/2020 Ischemic cardio myopathy status post subcutaneous AICD in [facility] uknown date PAD status post peripheral stenting Nonhealing ulcers, status post amputation Diabetes mellitus, type 2 Hypertension Hyperlipidemia PLAN Recommend cardiac catheterization, however, patient does not want this done at this time. We will readdress cardiac catheterization in the office to be done as an outpatient. Entresto to be initated as an outpatient monitoring renal function From a cardiology perspective, patient can be discharged today on current medical therapy Follow up with Dr. Jalloh outpatient Objective - Vital Signs Vital signs: Vital Signs Temp 98.2 F 04/10/21 08:00 Pulse 81 04/10/21 12:00 Resp 16 04/10/21 12:00 BP 122/69 04/10/21 12:00 Pulse Ox 96 04/10/21 12:00 Intake & Output 04/09/21 04/10/21 04/10/21 18:59 06:59 18:59 Intake Total 1363.854 100 360 Output Total 450 Balance 913.854 100 360 Weight 82 kg 75 kg Intake: IV 1250 50 Sodium Chloride 0.9% 1, 550 50 000 ml @ 50 mls/hr IV . Q20H NATHAN Rx#:[id number] Intake, IV Titration 113.854 50 Amount Heparin Sod,Pork in 0.45% 113.854 NaCl 25,000 unit In 0.45 % NaCl 1 250ml.bag @ 11. 917 UNITS/KG/HR 10 mls/hr IV .Q24H NATHAN Rx#: [id number] ceFAZolin 2 gm In Sodium 50 Chloride 0.9% 50 ml @ 100 mls/hr IVPB Q6H NATHAN Rx#: [id number] Oral 360 Output: Urine 450 Other: Voiding Method Urinal Toilet Toilet Urinal Urinal # Voids 1 # Bowel Movements 1 - Labs CBC & Chem 7: 04/09/21 05:32 04/10/21 07:25 Labs: Abnormal Lab Results - Last 24 Hours (Table) 04/09/21 04/09/21 04/09/21 Range/Units 13:00 13:57 19:56 Sodium (137-145) mmol/L BUN (9-20) mg/dL Glucose (74-99) mg/dL POC Glucose (mg/dL) 72 L 59 L (75-99) mg/dL Calcium (8.4-10.2) mg/dL Albumin (3.5-5.0) g/dL Urine Protein 2+ H (Negative) Urine Blood Small H (Negative) Ur Leukocyte Esterase Trace H (Negative) 04/09/21 04/10/21 04/10/21 Range/Units 23:58 06:08 07:25 Sodium 133 L (137-145) mmol/L BUN 31 H (9-20) mg/dL Glucose 180 H (74-99) mg/dL POC Glucose (mg/dL) 203 H 207 H (75-99) mg/dL Calcium 8.3 L (8.4-10.2) mg/dL Albumin 3.1 L (3.5-5.0) g/dL Urine Protein (Negative) Urine Blood (Negative) Ur Leukocyte Esterase (Negative) 04/10/21 Range/Units 11:30 Sodium (137-145) mmol/L BUN (9-20) mg/dL Glucose (74-99) mg/dL POC Glucose (mg/dL) 272 H (75-99) mg/dL Calcium (8.4-10.2) mg/dL Albumin (3.5-5.0) g/dL Urine Protein (Negative) Urine Blood (Negative) Ur Leukocyte Esterase (Negative)
== END 2021-04-10 14:04 | disposition home or self-care (01) | DRG 242 ==
LOC: EC 11:27 → 3SCARD 13:29 → 2SICU 13:54 → 3SCARD 04-09 16:52
PROVIDERS: ADMIT Internal Medicine; ATTEND Internal Medicine
PROC: 02HK3JZ Insertion of Pacemaker Lead into Right Ventricle, Percutaneous Approach (ICD-10-PCS; 2021-04-09)
PROC: 0JH637Z Insertion of Cardiac Resynchronization Pacemaker Pulse Generator into Chest Subcutaneous Tissue and Fascia, Percutaneous Approach (ICD-10-PCS; principal; 2021-04-09 13:15)
PROC: 02H63JZ Insertion of Pacemaker Lead into Right Atrium, Percutaneous Approach (ICD-10-PCS; 2021-04-09 13:15)
DX: I44.2 Atrioventricular block, complete (principal); I50.23 Acute on chronic systolic (congestive) heart failure; E87.1 Hypo-osmolality and hyponatremia; N17.9 Acute kidney failure, unspecified; E11.42 Type 2 diabetes mellitus with diabetic polyneuropathy; E11.51 Type 2 diabetes mellitus with diabetic peripheral angiopathy without gangrene; E11.649 Type 2 diabetes mellitus with hypoglycemia without coma; E11.65 Type 2 diabetes mellitus with hyperglycemia; E78.5 Hyperlipidemia, unspecified; E86.0 Dehydration; Z20.822 Contact with and (suspected) exposure to COVID-19; E87.5 Hyperkalemia; E87.8 Other disorders of electrolyte and fluid balance, not elsewhere classified; F17.210 Nicotine dependence, cigarettes, uncomplicated; I25.10 Atherosclerotic heart disease of native coronary artery without angina pectoris; G89.4 Chronic pain syndrome; I25.5 Ischemic cardiomyopathy; I45.10 Unspecified right bundle-branch block; M50.30 Other cervical disc degeneration, unspecified cervical region; J44.9 Chronic obstructive pulmonary disease, unspecified; I34.0 Nonrheumatic mitral (valve) insufficiency; Z95.810 Presence of automatic (implantable) cardiac defibrillator; Z95.1 Presence of aortocoronary bypass graft; Z89.512 Acquired absence of left leg below knee; Z86.73 Personal history of transient ischemic attack (TIA), and cerebral infarction without residual deficits; Z79.899 Other long term (current) drug therapy; Z79.84 Long term (current) use of oral hypoglycemic drugs; Z79.82 Long term (current) use of aspirin; Z79.4 Long term (current) use of insulin; Z95.5 Presence of coronary angioplasty implant and graft; I11.0 Hypertensive heart disease with heart failure; G47.00 Insomnia, unspecified; I25.2 Old myocardial infarction
CPT/HCPCS: 33208; 33210; 36415; 71045; 80053; 81001; 83036; 83735; 84132; 84484; 85025; 85610; 85730; 86850; 86900; 86901; 87635; 93005; 93308; 96365; 96372; 99291

== ENCOUNTER 2021-11-12 10:19 | Day surgery (SDC) | payer OTHER ==
[2021-11-11 14:36] VITALS: BMI 29.6
[~2021-11-12 10:19] MED LIST: SODIUM CHLORIDE 0.9% 1,000 ML IV SCH; ceFAZolin 1 GM in SODIUM CHLORIDE 0.9% IRRIG BTL 250 ML IRRIGATION PRN
[2021-11-12] MEDS ORDERED: SODIUM CHLORIDE 0.9% 500 ML 500 ML IV ONE (10:30)
[2021-11-12 10:43] LABS: Glucose,Whole Blood 118 mg/dL (70-110)
[2021-11-12 10:48] VITALS: BP 99/53; PULSE 80; RESP 18; TEMP 98.2
[2021-11-12] MEDS ORDERED: MIDAZOLAM 2 MG/2 ML VIAL ONE (11:52)
[2021-11-12] MEDS ORDERED: FUROSEMIDE 10 MG/ML 2 ML VIAL ONE (11:52)
[2021-11-12] MEDS ORDERED: PROPOFOL 10 MG/ML 20 ML VIAL IV ONE (11:52)
[2021-11-12] MEDS ORDERED: fentaNYL (PF) 50 MCG/ML 2 ML AMP ONE (11:52)
[2021-11-12] MEDS ORDERED: PHENYLEPHRINE-0.9% NACL SYG 1,000 MCG/10 ML SYRINGE ONE (11:52)
[2021-11-12] MEDS ORDERED: LIDOCAINE 1% INJ 10MG/ML (30 ML VIAL-PF) SQ ONE ×3 (12:37→15:06)
[2021-11-12] MEDS ORDERED: VANCOMYCIN 2,000 MG in SODIUM CHLORIDE 0.9% 500 ML 500 ML IVPB STA (13:31)
[2021-11-12] MEDS ORDERED: ceFAZolin 1,000 MG in SODIUM CHLORIDE 0.9% IRRIG BTL 250 ML IRRIGATION STA (14:20)
--- NOTE | 2021-11-12 14:39 | P.EPPROC ---
- EP Procedure Note Electrophysiology Procedure Note: Diagnosis Severe cardio myopathy congestive heart failure Subcutaneous ICD at [facility], awaiting generator change Patient has a Medtronic biventricular pacemaker in situ within ICD lead in the RV Congestive heart failure class III elevated pressures intracardiac 6 months back On guideline directed medical treatment including ENTRESTO and carvedilol Procedure details Patient was brought to the EP lab in a fasting state. Written informed consent was obtained prior to the procedure did consciousness sedation provided by [employer] The left pectoral axillary and infraclavicular axillary areas were prepped and draped per protocol. IV antibiotics administered Baseline cine fluoroscopy of the ICD generator and subcutaneous ICD lead performed An incision was made parallel to the anterior axillary fold just over the generator on its anteriormost edge Subcutaneous ICD Generator was explanted The pocket looked well-healed with a very thin capsule no calcification A new subcutaneous ICD was implanted System impedance was 70 ohms After closing the deep layer the device was tested DFT testing of the subcutaneous ICD Ventricular fibrillation was induced and successfully detected during Bi V pacing DFT at 65 J failed in the primary nectar and in the alternate vector at 65 J each A rescue external shock successfully defibrillated the patient to sinus rhythm We compared the orientation of the new subcutaneous ICD on fluoroscopy with the baseline We change the orientation of the subcutaneous ICD to exactly the previous baseline There was improvement in the noninvasive impedance to 65 ohms However when DFT testing was performed, a tight to conversion was noted to 65 J in the primary configuration This is disease tested at 70 J in the primary configuration but this failed and the rescue shock was delivered The new generator was then explanted. The lead was capped and secured to the u nderlying muscle and the wound was closed in 3 layers and dressed per protocol Antibiotic pouch placed in the pocket IV vancomycin administered Extended procedure duration on account of explantation of the device at [facility], implantation of a new device testing of his device Repositioning of this device in a different orientation reclosure of the pocket and retesting there defibrillation threshold levels. Impression Subcutaneous ICD failed to defibrillated the patient at 65 J in the primary and alternate configuration The subcutaneous ICD failed to defibrillated the patient in the primary configu ration, 70 J in a slightly different orientation On fluoroscopy the device position was excellent and posterior lateral The condition of the pocket and the capsule was excellent This most likely represents progression of cardio myopathy and high DFTs on account of this The new subcutaneous ICD generator was explanted and the wound was closed in 3 layers Preparations were made to implant an internal biventricular ICD Since the patient already has an ICD lead internally, this will involve a biventricular ICD generator change today I discussed this with the patient's and informed her of the plan
--- NOTE | 2021-11-12 16:03 | P.PRLE ---
RE: ElroyJah Dear Fredy Mr. Abbasi has known ischemic cardio myopathy and received a subcutaneous ICD in [place] many years back. Subsequently he developed conduction system disease and I implanted a biventricular pacemaker. At that time I had implanted in ICD lead in sterile standard pacing lead since he is very high pressures in the right ventricle and has known RV cardio myopathy His subcutaneous ICD reached KURT and therefore I recommended a subcutaneous ICD generator change However after implantation of the subcutaneous ICD today I tested his defibrillation level We were unable to defibrillated him successfully with the subcutaneous ICD Therefore the subcutaneous ICD was removed Instead the implanted in internal ICD and removed his permanent ventricular pacemaker The failure of his subcutaneous ICD to successfully defibrillated him likely represents progression of left ventricular disease as well as RV enlargement It is unfortunate that despite 8 months of biventricular pacing, the subcutaneous ICD at 65 J was unable to defibrillate him out of ventricular fibrillation, in the EP lab He is DFT via the internal ICD was also elevated at 30 J, but we have an adequate margin of safety His sodium is 125 and is already on carvedilol and ENTRESTO his blood pressure is 100 mmHg Last year he did have an episode of hyperkalemia but for most part his potassium has been in the normal range I will restart him on Aldactone 12.5 mg by mouth daily but he would benefit from SGLT2 inhibitors I will continue Plavix aspirin atorvastatin carvedilol and ENTRESTO and add 12.5 mg of spironolactone to his current regimen He'll check his BMP in 2-3 weeks His TSH is normal Thank you for entrusting me with the care of the patient Warm regards Sincerely Jesse Sorenson
[2021-11-12] MEDS ORDERED: oxyCODONE-APAP 10-325MG 1 EACH TAB PO PRN (16:10)
--- NOTE | 2021-11-12 16:10 | P.EPPROC ---
- EP Procedure Note Electrophysiology Procedure Note: Final Diagnosis High DFTs with subcutaneous ICD Inability to successfully defibrillated patient with a subcutaneous ICD, 65 J and 70 J Biventricular pacemaker in situ but in the ICD lead Biventricular pacemaker explanted and a biventricular ICD implanted DFT between 20 and 30 J internally Procedure details The left pectoral area was prepped and draped as a protocol. IV vancomycin was administered Incision was made directly over the previous injury incision site and carried down to the level of the generator The leads were freed The subfascial pocket was enlarged and the pocket was revised to accommodate the larger device The by ventricle pacemaker was explanted, Medtronic Biventricular ICD was implanted, DF 1 Patient has a DF1 ICD lead in situ [facility] heart failure Quad MRI, DF 1, Medtronic device Thresholds Chronic atrial thresholds 0.7 V at 0.4 ms pacing impedance 418 ohms, P waves 2 mV RV pacing threshold 0.7 V at 0.4 ms, pacing impedance 400 ohms, complete heart block LV 2-LV 3 thresholds 0.5 V at 0.4 ms, pacing impedance 532 ohms Defibrillation level testing Shock and T wave protocol was used to induce ventricle fibrillation This is adequately and appropriately detected at least sensitivity and successfully internally defibrillated with a 30 J shock A 20 J shock in normal polarity was unsuccessful in defibrillated the patient The device was then programmed accordingly with VT zone at 176 beats a minute, monitor zone at 150 beats a minute and give xarelto 114 beats a minute Appropriate antitachycardia pacing cardioversion defibrillations First cardioversion at 30 J first defibrillation at max output Biventricular pacing programmed simultaneous LV RV Patient tolerated the procedure well without any acute complications
[2021-11-12] MEDS ORDERED: FUROSEMIDE 10 MG/ML 4 ML VIAL IV STA (16:12)
[2021-11-12] MEDS ORDERED: ACETAMINOPHEN IV (For NPO) 1,000 MG in EMPTY BAG 1 BAG IVPB ONE (16:13)
[2021-11-12 17:22] LABS: Glucose,Whole Blood 90 mg/dL (70-110)
[2021-11-12] MEDS ORDERED: carvediloL 3.125 MG TAB PO SCH (17:30)
[2021-11-12] MEDS ORDERED: metFORMIN 500 MG TAB PO SCH (17:30)
[2021-11-12 19:43] LABS: Glucose,Whole Blood 147 mg/dL (70-110)
[2021-11-12] MEDS ORDERED: ATORVASTATIN 80 MG TAB PO SCH (21:00)
[2021-11-12] MEDS ORDERED: INSULIN DETEMIR (LEVEMIR) 100 UNIT/ML SYR SQ SCH (21:00)
[2021-11-12] MEDS ORDERED: CLOPIDOGREL 75 MG TAB PO SCH (21:00)
[2021-11-12] MEDS ORDERED: GABAPENTIN 300 MG CAP PO SCH (22:00)
[2021-11-12] MEDS ORDERED: ACETAMINOPHEN TAB 325 MG TAB PO PRN (22:00)
[2021-11-13] MEDS ORDERED: ASPIRIN 81 MG PO SCH (09:00)
== END 2021-11-12 19:50 | disposition home or self-care (01) ==
LOC: CATHEP 10:19 → 6NMEDSUR 15:54 → CATHEP 19:50
PROVIDERS: ATTEND Internal Medicine Clinical Cardiac Electrophysiology
DX: Z45.02 Encounter for adjustment and management of automatic implantable cardiac defibrillator (principal); I25.5 Ischemic cardiomyopathy; I44.2 Atrioventricular block, complete; I51.7 Cardiomegaly; Z20.822 Contact with and (suspected) exposure to COVID-19; E11.9 Type 2 diabetes mellitus without complications; Z82.49 Family history of ischemic heart disease and other diseases of the circulatory system; Z72.0 Tobacco use; Z79.02 Long term (current) use of antithrombotics/antiplatelets; Z79.82 Long term (current) use of aspirin; Z79.4 Long term (current) use of insulin; Z79.899 Other long term (current) drug therapy
CPT/HCPCS: 33233; 33231; 87635; C1882; C1722; J2250; J3370; J1940; J0690; J2001; J3010; J2370; J2704; 33229; 33241

== ENCOUNTER → 2022-07-21 | Outpatient (CLI) | payer OTHER ==
--- NOTE | 2022-07-21 09:43 | CTL ---
EXAMINATION TYPE: CT Low Dose Lung DATE OF EXAM: 07/21/2022 8:03 AM CLINICAL INDICATION:Male, 56 years old with history of Z87.891 personal hx tobacco use;history of tob acco use. COMPARISON: None. TECHNIQUE: Multiple axial non-contrast scans were obtained from approximately the lung apices through the upper abdomen. Coronal and sagittal reformatted images were obtained. Low dose technique was uti lized. CT DLP: 135.70 mGycm, Automated exposure control for dose reduction was used. CT Contrast: Contrast used: None Oral contrast used: None FINDINGS: ======== Lack of intravenous contrast and low dose technique limits the evaluation of the vascular and soft ti ssue structures. LUNGS: No evidence of pulmonary fibrosis. No evidence of focal consolidation, pneumothorax or pleural effusion. Nodules: RUL: None. RML: None. RLL: None. USHA: None. LLL: Calcified granulomas medially measuring 3 mm series 5 image 38 and an adjacent series 5 imag e 37 nodule 2 mm. AIRWAY: Patent and unremarkable. HEART: Size within normal limits. MEDIASTINUM: No gross evidence of adenopathy. VASCULATURE: No aortic aneurysm. MUSCULOSKELETAL: Moderate disc degeneration changes are present throughout the thoracolumbar spine. a nterior fixation hardware in the lower cervical spine. SOFT TISSUES/LYMPH NODES: Cardiac conduction leads present throughout the anterior chest wall with le ads terminating in the right ventricle, coronary sinus and right atrium. LOWER NECK: No significant findings. UPPER ABDOMEN: No significant findings. IMPRESSION: No clinically significant pulmonary nodules. CT LUNG RAD AND CT CHEST RECOMMENDATION: Lung-Rad 1 Negative: Continue annual screening with LDCT in 12 months. S Modifier (other clinically significant findings): None Recommend smoking cessation (if current smoker), or continuation of smoking cessation (if prior smoke r). Annual screening for lung cancer with low-dose computed tomography is recommended in adults ages 55 to 77 years who have a 30 pack-year smoking history and currently smoke or have quit within the pa st 15 years. Screening should be discontinued once a person has not smoked for 15 years or develops a health problem that substantially limits life expectancy or the ability or willingness to have curat blessing lung surgery. Lung rads 2021 [email or web address]
== END | disposition home or self-care (01) ==
LOC: RADCTMAIN 06:58
PROVIDERS: ATTEND Internal Medicine
DX: Z12.2 Encounter for screening for malignant neoplasm of respiratory organs (principal); Z87.891 Personal history of nicotine dependence
CPT/HCPCS: 71271

== ENCOUNTER 2022-08-27 11:44 | Day surgery (SDC) | payer OTHER ==
[2022-07-16 09:35] VITALS: BMI 32.6
[~2022-08-27 11:44] MED LIST changes: +ALPRAZolam 0.25 MG TAB PO PRN; +ALPRAZolam 0.5 MG TAB PO PRN; +ASPIRIN 325 MG TAB PO PRN; +HEPARIN SODIUM,PORCINE 10,000 UNIT in SODIUM CHLORIDE 0.9% 1,000 ML IRRIGATION PRN; +HEPARIN SODIUM,PORCINE 2,500 UNIT in SODIUM CHLORIDE 0.9% 250 ML IRRIGATION PRN; -SODIUM CHLORIDE 0.9% 1,000 ML IV SCH; +SODIUM CHLORIDE 0.9% 1,000 ML in EMPTY BAG 1 BAG IV ONE; +ZOLPIDEM 5 MG TAB PO PRN; -ceFAZolin 1 GM in SODIUM CHLORIDE 0.9% IRRIG BTL 250 ML IRRIGATION PRN
[2022-08-27] MEDS ORDERED: ASPIRIN 81 MG ONE (12:05)
[2022-08-27 13:15] LABS: Glucose,Whole Blood 155 mg/dL (70-110)
[2022-08-27] MEDS ORDERED: LIDOCAINE 1% INJ 10MG/ML (20 ML MDV) ONE (14:35)
[2022-08-27] MEDS ORDERED: HEPARIN SODIUM 1,000 UN/ML (10ML VL) ONE (14:35)
[2022-08-27] MEDS ORDERED: fentaNYL (PF) 50 MCG/ML 2 ML AMP ONE (14:35)
[2022-08-27] MEDS: fentaNYL (PF) 50 MCG/ML 2 ML AMP IV ONE ×2 (14:48→16:18)
[2022-08-27] MEDS ORDERED: MIDAZOLAM 2 MG/2 ML VIAL IV ONE (14:48)
[2022-08-27] MEDS: LIDOCAINE 1% INJ 10MG/ML (20 ML MDV) SQ ONE ×2 (14:51→15:03)
[2022-08-27] MEDS ORDERED: VERAPAMIL 2.5 MG/ML 2 ML AMP ONE (14:51)
[2022-08-27] MEDS ORDERED: VERAPAMIL SYRINGE (5 MG/10 ML) INTRAARTER ONE (14:52)
[2022-08-27] MEDS: HEPARIN SODIUM 1,000 UN/ML (10ML VL) IV ONE ×4 (15:07→16:48)
[2022-08-27] MEDS ORDERED: IOPAMIDOL-250 100ML BTL INTRAARTER ONE (15:41)
[2022-08-27] MEDS ORDERED: IOPAMIDOL-370 100ML BTL INJ ONE (17:10)
[2022-08-27 17:45] LABS: Glucose,Whole Blood 114 mg/dL (70-110)
[2022-08-27] MEDS ORDERED: ATROPINE SULFATE 0.1 MG/ML 10ML SYRINGE ONE (18:22)
[2022-08-27] MEDS: oxyCODONE-APAP 10-325MG 1 EACH TAB PO PRN (18:23)
[2022-08-27] MEDS: GABAPENTIN 300 MG CAP PO SCH ×2 (18:31→20:54)
[2022-08-27] MEDS ORDERED: FUROSEMIDE 80 MG TAB PO SCH (19:00)
[2022-08-27 20:32] LABS: Glucose,Whole Blood 135 mg/dL (70-110)
[2022-08-27] MEDS: INSULIN ASPART (NovoLOG) 100 UNIT/ML VIAL SQ SCH (20:46)
[2022-08-27] MEDS: SACUBITRIL/VALSARTAN 24 MG-26 MG TABLET PO SCH (20:54)
[2022-08-27] MEDS: FUROSEMIDE 80 MG TAB PO SCH (20:54)
[2022-08-27] MEDS ORDERED: INSULIN DETEMIR (LEVEMIR) 100 UNIT/ML SYR SQ SCH (21:00)
[2022-08-27] MEDS ORDERED: ATORVASTATIN 80 MG TAB PO SCH (21:00)
[2022-08-27] MEDS ORDERED: NALOXONE 0.4 MG/ML 1 ML VIAL IVP PRN (22:25)
[2022-08-27] MEDS ORDERED: SODIUM CHLORIDE 0.9% 1,000 ML in EMPTY BAG 1 BAG IV SCH (22:30)
--- NOTE | 2022-08-27 22:47 | P.PCN ---
Description of Procedure: PROCEDURES PERFORMED: Abdominal angiography with right lower extremity runoff, right SFA stent with overlapping 6.0 x 80mm, 6.0 x 140mm, 5.0 x 140mm and 5.0 x 60mm Zilver DWIGHT, IVUS right SFA INDICATION: PAD, right lower extremity pain concerning for claudication CONSENT:I have discussed the risks, benefits and alternative therapies for the above-mentioned procedure and for both sedation/analgesia as well as necessary blood product administration, if indicated, as they pertain to this patient. The patient has indicated understanding and acceptance of the risks and procedures discussed. PROCEDURE: After the risks, benefits and alternatives of the above mentioned procedure explained in detail with the patient, informed consent was obtained. Patient was taken to the catheterization lab and prepped and draped in usual fashion. 1% lidocaine was used to anesthetize the right radial artery. A 6Fr sheath was placed in the right radial artery using modified Seldinger technique. Using a 6Fr pigtail catheter, abdominal angiography was performed which showed adequate anatomy for left femoral access. Therefore 1% lidocaine was used to anesthetize the left femoral area. A 6-Arabic sheath was placed in the left femoral artery using modified Seldinger technique. A rim catheter and a 0.035 stiff Glidewire was advanced into the contralateral profunda. A 6-Arabic 65 cm destination sheath was inserted into the level of the right common femoral artery. Right lower extremity angiograms were performed. The decision was made to perform intervention of the right SFA. A 0.035 stiff glide in a angled glide cath was used to wire the [employer]. There was ambiguous proximal cap at the level of the cap, necessitating dissection reentry approach. A J was made and reentry was achieved at the proximal popliteal. This was confirmed with IV contrast injection. Balloon angioplasty was performed with a 4.0 balloon. IVUS showed dissection however there was more diffuse disease of the distal SFA and proximal popliteal. Overlapping 5.0 x 140mm distally, 6.0 x 140mm in the mid and 6.0 x 80mm Zilved DWIGHT were placed from the near origin of the SFA to the distal SFA. The stents were post dilated with a 5.0 balloon. There was a distal dissection which was covered with a 5.0 x 60mm Zilver DWIGHT which was post dilated with a 5.0 balloon. Final angiograms were performed. Preintervention there was 100% stenosis and no antegrade flow and post intervention there was <10% stenosis with uninhibited antegrade flow. The sheath was left in place to be pulled when ACT decreased. The right radial sheath was removed and hemostasis was achieved. The patient tolerated the procedure well. Patient was transported back to the post catheterization holding area in stable condition. Conscious Sedation: Patient was monitored under the direct supervision of vision of myself for conscious sedation using Versed and fentanyl for a total duration of 134 minutes HEMODYNAMICS: Aorta: 132/61 Abdominal aorta: The abdominal aorta has mild calcifcation. Renal arteries were not identified. There is no significant dissection or aneurysm. There is no significant stenosis. Right lower extremity: Right common iliac artery: There is no significant stenosis. Right external iliac artery: There is no significant stenosis. Right internal iliac artery: There is no significant stenosis. Right common femoral artery: There is no significant stenosis. Right profunda: There is no stenosis. Right SFA: There is 100% occlusion of the proximal right SFA Right popliteal artery: There is 30-50% proximal popliteal stenosis. Right tibioperoneal trunk: There is no significant stenosis. Right anterior tibial artery: There is no significant stenosis. Right posterior tibial artery: There is no significant stenosis Right peroneal artery: There is no significant stenosis. Left lower extremity: Left common iliac artery: There is no significant stenosis. Left external iliac artery: There is no significant stenosis. Left internal iliac artery: There is no significant stenosis. Left common femoral artery: There is no significant stenosis. Left profunda: There is no significant stenosis. Left SFA: There is 100% proximal left SFA stenosis. FINAL IMPRESSION: 1. Peripheral arterial disease as described above including right and left SFA 100% stenosis. 2. S/p right SFA stent with overlapping 6.0 x 80mm, 6.0 x 140mm, 5.0 x 140mm and 5.0 x 60mm Zilver DWIGHT PLAN: 1. Aggressive risk factor modification per most recent ACC/AHA guidelines. 2. Continue dual antiplatelets with aspirin and Plavix for minimum of 3 months.
[2022-08-28] MEDS: oxyCODONE-APAP 10-325MG 1 EACH TAB PO PRN ×2 (01:23→07:57)
[2022-08-28 02:11] LABS: Glucose,Whole Blood 224 mg/dL (70-110)
[2022-08-28 06:08] LABS: Glucose,Whole Blood 222 mg/dL (70-110)
[2022-08-28] MEDS: INSULIN ASPART (NovoLOG) 100 UNIT/ML VIAL SQ SCH (06:29)
[2022-08-28] MEDS ORDERED: INSULIN ASPART (NovoLOG) 100 UNIT/ML VIAL SQ SCH (07:30)
[2022-08-28 08:12] LABS: Glucose,Whole Blood 169 mg/dL (70-110)
--- NOTE | 2022-08-28 08:25 | IR ---
EXAMINATION TYPE: IR stent intravas non coronary DATE OF EXAM: 08/27/2022 COMPARISON: NONE HISTORY: Fluoroscopy time. Fluoroscopy was provided to the referring clinician.
[2022-08-28 08:34] VITALS: RESP 16; TEMP 98.1
[2022-08-28] MEDS ORDERED: carvediloL 6.25 MG TAB PO SCH (09:00)
[2022-08-28] MEDS ORDERED: CLOPIDOGREL 75 MG TAB PO SCH (09:00)
[2022-08-28] MEDS ORDERED: allopurinoL 100 MG TAB PO SCH (09:00)
[2022-08-28] MEDS ORDERED: LORATADINE 10 MG TAB PO SCH (09:00)
[2022-08-28] MEDS: FUROSEMIDE 80 MG TAB PO SCH (09:22)
[2022-08-28] MEDS: GABAPENTIN 300 MG CAP PO SCH (09:22)
[2022-08-28] MEDS: SACUBITRIL/VALSARTAN 24 MG-26 MG TABLET PO SCH (09:27)
[2022-08-28 10:31] LABS: African American GFR (CKD) 57 (>60 ml/min/1.73 sqM); Non-African American GFR(CKD) 49 (>60 ml/min/1.73 sqM)
[2022-08-28 11:26] VITALS: BP 113/65; PULSE 83
== END 2022-08-28 11:40 | disposition home or self-care (01) ==
LOC: CATHCVL 11:44 → 3SCARD 17:05 → CATHCVL 08-28 11:40
PROVIDERS: ATTEND Internal Medicine
DX: I70.213 Atherosclerosis of native arteries of extremities with intermittent claudication, bilateral legs (principal); I70.0 Atherosclerosis of aorta; I10 Essential (primary) hypertension; I25.5 Ischemic cardiomyopathy; E11.51 Type 2 diabetes mellitus with diabetic peripheral angiopathy without gangrene; I44.2 Atrioventricular block, complete; I48.0 Paroxysmal atrial fibrillation; I25.2 Old myocardial infarction; E11.42 Type 2 diabetes mellitus with diabetic polyneuropathy; E78.5 Hyperlipidemia, unspecified; F17.210 Nicotine dependence, cigarettes, uncomplicated; Z95.1 Presence of aortocoronary bypass graft; Z95.810 Presence of automatic (implantable) cardiac defibrillator; Z87.448 Personal history of other diseases of urinary system; Z89.512 Acquired absence of left leg below knee; Z86.73 Personal history of transient ischemic attack (TIA), and cerebral infarction without residual deficits; Z79.01 Long term (current) use of anticoagulants; Z79.02 Long term (current) use of antithrombotics/antiplatelets; Z79.4 Long term (current) use of insulin; Z79.84 Long term (current) use of oral hypoglycemic drugs; Z79.899 Other long term (current) drug therapy
CPT/HCPCS: 82565; 37226; 37252; 99152; 99153 ×8; C1769 ×8; C1894 ×3; C1725 ×2; C1874 ×2; J2250; J2001; J3010; J1644; Q9966; Q9967

== ENCOUNTER → 2022-11-14 | Outpatient (CLI) | payer OTHER ==
--- NOTE | 2022-11-14 16:25 | XR ---
EXAMINATION TYPE: XR lumbar spine 2 or 3V DATE OF EXAM: 11/14/2022 2:08 PM INDICATION: Patient age:Male; 57 years old; Reason for study: M47.816; . COMPARISON: None TECHNIQUE: Frontal, lateral and coned in L5-S1 lateral views of the spine. FINDINGS: No evidence of any acute osseous pathology. No evidence of loss of vertebral body height i s seen. There is normal alignment of the lumbar vertebral bodies. Mild scattered disc space narrowing . Multilevel marginal osteophyte formation throughout the visualized spine. There is facet joint arth ropathy throughout the spine. Scattered at least mild neural foraminal stenosis. Left iliac stent gra ft noted. IMPRESSION: 1. No acute fracture definitively visualized there remains concern consider CT. 2. Mild multilevel disc degeneration.
== END | disposition home or self-care (01) ==
LOC: RADXRMAIN 13:36
PROVIDERS: ATTEND Internal Medicine
DX: M51.36 Other intervertebral disc degeneration, lumbar region (principal); M47.816 Spondylosis without myelopathy or radiculopathy, lumbar region
CPT/HCPCS: 72100